=== PATIENT | female | born 1940 | race Caucasian/White ===

== ENCOUNTER 2018-02-07 18:29 | Observation (INO) ==
[2018-02-07] MEDS ORDERED: SALINE FLUSH 10ml SYRINGE IVF PRN (18:37)
[2018-02-07] MEDS ORDERED: LABETALOL 20mg/4ml INJECTION IVP ONE (18:37)
--- NOTE | 2018-02-07 18:41 | Emergency Department Report ---
Neuro HPI - General Stated Complaint: pos stoke Time Seen by Provider: 02/07/18 18:37 Source: patient Mode of arrival: ambulatory Limitations: no limitations - History of Present Illness HPI Narrative: Patient presents with a one-hour history of a feeling of lightheadedness and dizziness associated with left facial paresthesia. Patient is never had a heart attack or stroke to her knowledge, but was concerned so she came to the ER. In triage the patient was evaluated quickly, found to have a questionable left facial droop, as well as hypertension at 211/97, which is significantly elevated for this patient. - Related Data Home Medications: Home Medications Medication Instructions Recorded Confirmed Cyanocobalamin (B-12) [Vit. B-12] 1,000 mcg IM Q30D 02/07/18 02/07/18 Ibuprofen [Advil] 200 mg PO Q4H PRN 02/07/18 02/07/18 Multivitamin [One Daily 1 tab PO DAILY 02/07/18 02/07/18 Multivitamin] Allergies/Adverse Reactions: Allergies Allergy/AdvReac Type Severity Reaction Status Date / Time Sulfa (Sulfonamide Allergy Unknown Verified 02/07/18 19:01 Antibiotics) Review of Systems All systems: reviewed and negative except as stated PFSH Lichen planus Surgical History: Appendectomy. Colonoscopies - Social History Smoking status: Never smoker Substance use type: does not use Alcohol intake frequency: does not drink Physical Exam - Limitations Limitations: no limitations - General General appearance: alert - Normal Exams: Head:: Normocephalic without trauma Eyes:: Pupils are PERRLA w/ EOMI, No scleral icterus, irritation, or foreign bodies noted ENMT:: No facial trauma, nasal exudates, pharyngeal erythema, or exudates are noted Neck:: Full range of motion, without adenopathy, JVD, bruits or thyromegaly Chest/Respirations:: Clear all wakefield, with good airflow, and symmetry bilaterally Cardiovascular:: Regular rate and rhythm, without murmur or gallop, Pulses 2+ all extremities, capillary refill, <2 seconds all extremities Abdomen:: Bowel sounds positive, soft, non-tender, non-distended, no hepatosplenomegaly, masses or bruits noted Lymphatic:: No lymphadenopathy, or lymphedema noted Musculoskeletal:: No tenderness, or deformity noted, good range of motion, all extremities Integumentary:: No rashes, hives, or bruising noted, hair and nails, without abnormality Psychiatric:: Patient exhibits, appropriate attention, emotion and affect - Neurological Exam Neurological exam: Present: alert, oriented X3, CN II-XII intact (patient has a slight asymmetry of her face, left face leans slightly less active on exam than the right. Patient has no arcenio facial palsy, but does appear to have a slight left facial droop in comparison only. Patient has no idea if she's ever had anything like this before.), normal gait, motor sensory deficit, reflexes normal Neuro Symptoms/Deficit - [facility] Narrative Medical decision making narrative: Stroke alert was initiated immediately on triage CT head - normal/negative Patient is given 20 mg labetalol to reduce blood pressure CBC- n CMP - nn INR PTT - normal UA - n EKG - sinus rhythm without ischemic, ectopy, or infarction Troponin - n Patient's dizziness has completely resolved. Case is discussed with Dr. James Burgess, we will admit the patient outpatient for TIA versus CVA with minimal symptomatology. I did discuss with the patient and her family at the beginning as well as later in the course, the due to the patient's minimal symptomatology and improving course, that I did not recommend clotbusting medications. Patient family were accepting of this, and understood the precautions as well as the risks of severe bleeding if the patient was given TPA. - Lab Data Result diagrams: 02/07/18 18:46 02/07/18 19:08 Disposition Clinical Impression: Facial paresthesia, Dizziness Disposition: 01 Discharged Home, Self-Care Condition: Improved Prescriptions: No Action Multivitamin [One Daily Multivitamin] 1 tab PO DAILY Ibuprofen [Advil] 200 mg PO Q4H PRN PRN Reason: Pain Cyanocobalamin (B-12) [Vit. B-12] 1,000 mcg IM Q30D Referrals: Hannah Xavier DO [Primary Care Provider] - Desiree Farley MD [Physician] - - Seen By: physician
--- OUTSIDE RECORDS SUMMARY | 2018-02-07 18:59 | External Medical Summary | Referral Summary ---
:1940 Author Organization [facility] Address [address] [place] [address] [place] [address] Care Team Providers Name Role Phone Alvaro Xavierrakesh Yeh Primary Care Physician Encounter VC Date(s): 03/09/15 - 03/09/15 [facility] [place] [address]- Discharge Diagnosis: Hyperlipidemia Discharge Diagnosis: Rash Discharge Disposition: 01-Home or Self Care Attending Physician: Desiree Farley MD Admitting Physician: Desiree Farley MD Vital Signs Most recent to oldest [Reference Range]: 1 Temperature Tympanic [36.6-38.1 degC] 37.1 degC (03/09/15 2:33 PM) Blood Pressure [90-140/60-90 mmHg] 118/76 mmHg (03/09/15 2:33 PM) Problem List Condition Effective Dates Status Health Status Informant 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 Left Leg Fracture(Confirmed) 1987 Active Hearing Loss(Confirmed) Active very sensitive skin(Confirmed)1 Active Lichen Planus on fingers and legs, Active sees(Confirmed)2 Menopausal Symptoms(Confirmed) Active Obesity(Confirmed) Active patient neuromuscular rheumatism, 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) Sinusitis(Confirmed) Resolved Vitamin B complex Active deficiency(Confirmed) 1See Conversion Document.2Housholder Allergies, Adverse Reactions, Alerts Substance Reaction Severity Status sulfanilamide topical Rash Active Medications cyanocobalamin 1000 mcg/mL injectable solution 1,000 mcg, IntraMuscular, qMonth, # 12 mL, 0 Refill(s), other reason (Rx) Start Date: 12/01/14 Stop Date: 12/03/15 Status: Orderedmultivitamin Daily, 0 Refill(s) Start Date: 02/23/14 Status: Ordered Results No data available for this section Immunizations Vaccine Date Refusal Reason tetanus-diphth toxoids (Td) adult/adol 08/29/10 tetanus-diphth toxoids (Td) adult/adol 06/05/00 Procedures Procedure Date Related Diagnosis Body Site colonoscopy 2012 Colonoscopies1 2000 Appendectomy Tonsillectomy 79537 flex sig, diverticulosis Social History Social History Type Response Smoking Status Never smoker Assessment and Plan Extracted from: Title: Ambulatory Patient Education Author: Desiree Farley MD Date: 03/10/15 Family Medicine Cholesterol Cholesterol is a white, waxy, fat-like protein needed by your body in small amounts. The liver makes all the cholesterol you need. It is carried from the liver by the blood through the blood vessels. De posits (plaque ) may build up on blood vessel lyon. This makes the arteries narrower and stiffer. Plaque increases the risk for heart attack and stroke. You cannot feel your cholesterol level even if it is very high. The only way to know is by a blood test to check your lipid (fats) levels. Once you know your cholesterol levels, you should keep a record of the test results. Work with your caregiver to to keep your levels in the desired range. WHAT THE RESULTS MEAN: Total cholesterol is a rough measure of all the cholesterol in your blood. LDL is the so-called bad cholesterol. This is the type that deposits cholesterol in the lyon of the arteries. You want this level to be low. HDL is the good cholesterol because it cleans the arteries and carries the LDL away. You want this level to be high. Triglycerides are fat that the body can either burn for energy or store. High levels are closely linked to heart disease. DESIRED LEVELS: Total cholesterol below 200. LDL below 100 for people at risk, below 70 for very high risk. HDL above 50 is good, above 60 is best. Triglycerides below 150. HOW TO LOWER YOUR CHOLESTEROL: Diet. Choose fish or white meat chicken and turkey, roasted or baked. Limit fatty cuts of red meat, fried foods, and processed meats, such as sausage and lunch meat. Eat lots of fresh fruits and vegetables. Choose whole grains, beans, pasta, potatoes and cereals. Use only small amounts of olive, corn or canola oils. Avoid butter, mayonnaise, shortening or palm kernel oils. Avoid foods with trans-fats. Use skim/nonfat milk and low-fat/nonfat yogurt and cheeses. Avoid whole milk, cream, ice cream, egg yolks and cheeses. Healthy desserts include sade food cake, sammie snaps, animal crackers, hard candy, popsicles, and low-fat/nonfat frozen yogurt. Avoid pastries, cakes, pies and cookies. Exercise. A regular program helps decrease LDL and raises HDL. Helps with weight control. Do things that increase your activity level like gardening, walking, or taking the stairs. Medication. May be prescribed by your caregiver to help lowering cholesterol and the risk for heart disease. You may need medicine even if your levels are normal if you have several risk factors. HOME CARE INSTRUCTIONS Follow your diet and exercise programs as suggested by your caregiver. Take medications as directed. Have blood work done when your caregiver feels it is necessary. MAKE SURE YOU: Understand these instructions. Will watch your condition. Will get help right away if you are not doing well or get worse. Document Released: 05/22/2002 Document Revised: 11/18/2012 Document Reviewed: 06/10/2014 [facility] Patient Information 2014 [employer] [facility]. No follow up information was provided. Extracted from: Title: Office Visit Note Author: Desiree Farley MD Date: 03/10/15 Assessment/Plan Hyperlipidemia Patient does not wish meds Rash This is from abdomen rubbing on upper thigh.
--- OUTSIDE RECORDS SUMMARY | 2018-02-07 18:59 | External Medical Summary | Referral Summary ---
:1940 Author Organization [facility] Address [address] [place] [address] [place] [address] Care Team Providers Name Role Phone Hannah Xavier Primary Care Physician Encounter VC Date(s): 12/12/16 - 12/12/16 [facility] [address] [place] [address] [place] Discharge Disposition: 01-Home or Self Care Attending Physician: Hannah Xavier DO Admitting Physician: Hannah Xavier DO Vital Signs No data available for this section Problem List Condition Effective Dates Status Health [...] 0 Refill(s), other reason (Rx) Start Date: 09/19/16 Status: Orderedmultivitamin Daily, 0 Refill(s) Start Date: 02/23/14 Status: Ordered Results No data available for this section Immunizations Given and Recorded Vaccine Date Status Refusal Reason tetanus-diphth toxoids (Td) adult/adol 08/29/10 Recorded tetanus-diphth toxoids (Td) adult/adol 06/05/00 Recorded Procedures Procedure Date Related Diagnosis Body Site colonoscopy 2012 Colonoscopies1 2000 Appendectomy Tonsillectomy 45083 flex sig, diverticulosis Social History Social History Type Response Smoking Status Never smoker Assessment and Plan No data available for this section
--- OUTSIDE RECORDS SUMMARY | 2018-02-07 18:59 | External Medical Summary | Referral Summary ---
:1940 Author Organization [facility] Address [address] [place] [address] [place] [address] Care Team Providers Name Role Phone Hannah Xavier Primary Care Physician Encounter VC Date(s): 07/25/16 - 07/25/16 [facility] [place] [address] [place] Discharge Disposition: [...] Site colonoscopy 2012 Colonoscopies1 2000 Appendectomy Tonsillectomy 63118 flex sig, diverticulosis Social History Social History Type Response Smoking Status Never smoker Assessment and Plan No data available for this section
--- OUTSIDE RECORDS SUMMARY | 2018-02-07 18:59 | External Medical Summary | Referral Summary ---
:1940 Author Organization [facility], [facility] Address [address] [place] [address] [place] [address] Care Team Providers Name Role Phone Hannah Xavier Primary Care Physician Encounter VC Date(s): 05/29/17 - 05/29/17 [facility], [address] [place] [address] [place] Discharge Disposition: 01-Home or Self Care Attending Physician: Hannah Xavier DO Admitting Physician: Hannah Xavier DO Problem List Condition Effective Dates Status Health [...] 0 Refill(s) Start Date: 02/23/14 Status: Ordered Immunizations Given and Recorded Vaccine Date Status Refusal Reason tetanus-diphth toxoids (Td) adult/adol 08/29/10 Recorded tetanus-diphth toxoids (Td) adult/adol 06/05/00 Recorded Procedures Procedure Date Related Diagnosis Body Site colonoscopy 05/06/12 Colonoscopies1 2000 Appendectomy Tonsillectomy 44192 flex sig, diverticulosis Social History Social History Type Response Smoking Status Never smoker entered on: 11/26/14
--- OUTSIDE RECORDS SUMMARY | 2018-02-07 18:59 | External Medical Summary | Referral Summary ---
:1940 Author Organization [facility] Address [address] [place] [address] [place] [address] Care Team Providers Name Role Phone Hannah Xavier Primary Care Physician Encounter VC Date(s): 11/09/15 - 11/09/15 [facility] [address] [place] [address] [place] [address] [place] Discharge Disposition: 01-Home [...] Site colonoscopy 2012 Colonoscopies1 2000 Appendectomy Tonsillectomy 78729 flex sig, diverticulosis Social History Social History Type Response Smoking Status Never smoker Assessment and Plan No data available for this section
--- OUTSIDE RECORDS SUMMARY | 2018-02-07 18:59 | External Medical Summary | Referral Summary ---
:1940 Author Organization [facility] Address [address] [place] [address] [place] [address] Care Team Providers Name Role Phone Hannah Xavier Primary Care Physician Encounter VC Date(s): 03/06/17 - 03/06/17 [facility] [address] [place] [address] [place] Discharge Disposition: [...] Site colonoscopy 2012 Colonoscopies1 2000 Appendectomy Tonsillectomy 37123 flex sig, diverticulosis Social History Social History Type Response Smoking Status Never smoker Assessment and Plan No data available for this section
--- OUTSIDE RECORDS SUMMARY | 2018-02-07 18:59 | External Medical Summary | Referral Summary ---
:1940 Author Organization [facility] Address [address] [place] [address] [place] [address] Care Team Providers Name Role Phone Hannah Xavier Primary Care Physician Encounter VC Date(s): 08/10/15 - 08/10/15 [facility], [facility] [address] [place] [address] [place] [address]- Discharge Disposition: 01-Home or Self Care Attending [...] Site colonoscopy 2012 Colonoscopies1 2000 Appendectomy Tonsillectomy 41787 flex sig, diverticulosis Social History Social History Type Response Smoking Status Never smoker Assessment and Plan No data available for this section
--- OUTSIDE RECORDS SUMMARY | 2018-02-07 18:59 | External Medical Summary | Referral Summary ---
:1940 Author Care Team Providers Name Role Phone Desiree Farley Primary Care Physician Encounter [facility] [id number] Date(s): 12/29/14 - 12/29/14 [facility], [facility], [address] [place], [place] [address] Discharge Diagnosis: Vitamin B 12 deficiency Discharge Disposition: Home or Self Care Attending Physician: Desiree Farley MD Admitting Physician: Desiree Farley MD Referring Physician: Desiree Farley MD Vital Signs No data available for this [...] Refill(s), other reason (Rx) Start Date: 12/01/14 Status: Orderedmultivitamin Daily, 0 Refill(s) Start Date: 02/23/14 Status: Ordered Results No data available for this section Immunizations Vaccine Date Refusal Reason tetanus-diphth toxoids (Td) adult/adol 08/29/10 tetanus-diphth toxoids (Td) adult/adol 06/05/00 Procedures Procedure Date Related Diagnosis Body Site colonoscopy 2012 Colonoscopies1 2000 Appendectomy Tonsillectomy 24470 flex sig, diverticulosis Social History Social History Type Response Smoking Status Never smoker Assessment and Plan No data available for this section
--- OUTSIDE RECORDS SUMMARY | 2018-02-07 18:59 | External Medical Summary | Referral Summary ---
:1940 Author Organization [facility] Address [address] [place] [address] [place] [address] Care Team Providers Name Role Phone Hannah Xavier Primary Care Physician Encounter VC Date(s): 06/27/16 - 06/27/16 [facility] [place] [address] Discharge Diagnosis: Deficiency of vitamin B12 Discharge Disposition: 01-Home or Self Care Attending [...] Site colonoscopy 2012 Colonoscopies1 2000 Appendectomy Tonsillectomy 13468 flex sig, diverticulosis Social History Social History Type Response Smoking Status Never smoker Assessment and Plan No data available for this section
--- OUTSIDE RECORDS SUMMARY | 2018-02-07 18:59 | External Medical Summary | Referral Summary ---
:1940 Author Organization [facility] Address [address] [place] [address] [place] [address] Care Team Providers Name Role Phone Hannah Xavier Primary Care Physician Encounter VC Date(s): 07/13/15 - 07/13/15 [facility], [facility] [address] [place] [address] [place] [address]- Discharge Disposition: 01-Home or Self Care Attending [...] Site colonoscopy 2012 Colonoscopies1 2000 Appendectomy Tonsillectomy 47028 flex sig, diverticulosis Social History Social History Type Response Smoking Status Never smoker Assessment and Plan No data available for this section
--- OUTSIDE RECORDS SUMMARY | 2018-02-07 18:59 | External Medical Summary | Referral Summary ---
:1940 Author Organization [facility] Address [address] [place] [address] [place] [address] Care Team Providers Name Role Phone Hannah Xavier Rao Primary Care Physician Encounter VC Date(s): 03/23/15 - 03/23/15 [facility] [place] [address]- Discharge Diagnosis: Vitamin B-12 defiency Discharge Disposition: 01-Home or Self Care Attending Physician: Desiree Farley MD Admitting Physician: Desiree Farley MD Vital Signs No [...] Site colonoscopy 2012 Colonoscopies1 2000 Appendectomy Tonsillectomy 22114 flex sig, diverticulosis Social History Social History Type Response Smoking Status Never smoker Assessment and Plan No data available for this section
--- OUTSIDE RECORDS SUMMARY | 2018-02-07 18:59 | External Medical Summary | Referral Summary ---
:1940 Author Organization [facility] Address [address] [place] [address] [place] [address] Care Team Providers Name Role Phone Hannah Xavier Primary Care Physician Encounter VC Date(s): 09/14/15 - 09/14/15 [facility] [address] [place] [address] [place] [address] Discharge Disposition: 01-Home or Self Care Attending [...] Site colonoscopy 2012 Colonoscopies1 2000 Appendectomy Tonsillectomy 09324 flex sig, diverticulosis Social History Social History Type Response Smoking Status Never smoker Assessment and Plan No data available for this section
--- OUTSIDE RECORDS SUMMARY | 2018-02-07 18:59 | External Medical Summary | Referral Summary ---
:1940 Author Organization [facility] Address [address] [place] [address] [place] [address] Care Team Providers Name Role Phone Hannah Xavier Primary Care Physician Encounter VC Date(s): 02/06/17 - 02/06/17 [facility] [address] [place] [address] [place] Discharge Disposition: [...] Site colonoscopy 2012 Colonoscopies1 2000 Appendectomy Tonsillectomy 38553 flex sig, diverticulosis Social History Social History Type Response Smoking Status Never smoker Assessment and Plan No data available for this section
--- OUTSIDE RECORDS SUMMARY | 2018-02-07 18:59 | External Medical Summary | Referral Summary ---
:1940 Author Organization [facility] Address [address] [place] [address] [place] [address] Care Team Providers Name Role Phone Hananh Xavier Primary Care Physician Encounter VC Date(s): 10/08/15 - 10/08/15 [facility] [place] [address] [place] Discharge Diagnosis: B 12 def. Discharge Disposition: 01-Home or Self Care Attending Physician: Hannah Xavier DO Admitting Physician: Hannah Xavier DO Vital Signs Most recent to oldest [Reference Range]: 1 Peripheral Pulse Rate [60-100 bpm] 69 bpm (10/08/15 10:00 AM) Respiratory Rate [14-20 br/min] 18 br/min (10/08/15 10:00 AM) Blood Pressure [90-140/60-90 mmHg] 112/78 mmHg (10/08/15 10:00 AM) SpO2 95 % (10/08/15 10:00 AM) Problem List Condition Effective Dates Status Health [...] Refill(s) Start Date: 02/23/14 Status: Ordered Results Hematology Most recent to oldest [Reference Range]: 1 WBC [4.8-10.8 10*3/uL] 4.5 10*3/uL *LOW* (10/08/15 10:38 AM) RBC [4.00-5.20] 4.74 (10/08/15 10:38 AM) Hgb [12.0-16.0 gm/dL] 14.5 gm/dL (10/08/15 10:38 AM) Hct [37.0-47.0 %] 42.9 % (10/08/15 10:38 AM) MCV [82.0-99.0 fL] 90.5 fL (10/08/15 10:38 AM) MCH [27.0-32.0 pg] 30.6 pg (10/08/15 10:38 AM) MCHC [32.0-36.0 gm/dL] 33.8 gm/dL (10/08/15 10:38 AM) RDW [11.5-14.5 %] 13.9 % (10/08/15 10:38 AM) Platelet [150-400 10*3/uL] 225 10*3/uL (10/08/15 10:38 AM) MPV [8.8-14.8 fL] 11.3 fL (10/08/15 10:38 AM) Immature Granulocytes [0.0-1.0 %] 0.0 % (10/08/15 10:38 AM) Neutrophils [51-75 %] 54 % (10/08/15 10:38 AM) Lymphocytes [20-46 %] 35 % (10/08/15 10:38 AM) Monocytes [4-11 %] 7 % (10/08/15 10:38 AM) Eosinophils [0-4 %] 4 % (10/08/15 10:38 AM) Basophils [0-2 %] 1 % (10/08/15 10:38 AM) Neutro Absolute [1.90-7.00 10*3] 2.42 10*3 (10/08/15 10:38 AM) Lymph Absolute [0.80-3.30 10*3] 1.56 10*3 (10/08/15 10:38 AM) Latimer Absolute [0.30-1.00 10*3] 0.32 10*3 (10/08/15 10:38 AM) Eos Absolute [0.00-0.50 10*3] 0.17 10*3 (10/08/15 10:38 AM) Baso Absolute [0.00-0.20 10*3] 0.04 10*3 (10/08/15 10:38 AM) Chemistry Most recent to oldest [Reference Range]: 1 Sodium Lvl [135-144 mEq/L] 139 mEq/L (10/08/15 10:38 AM) Potassium Lvl [3.5-5.2 mEq/L] 4.4 mEq/L (10/08/15 10:38 AM) Chloride [99-111 mEq/L] 105 mEq/L (10/08/15 10:38 AM) CO2 [22-31 mEq/L] 25 mEq/L (10/08/15 10:38 AM) AGAP [3-20] 9 (10/08/15 10:38 AM) BUN [10-20 mg/dL] 22 mg/dL *HI* (10/08/15 10:38 AM) Glucose Lvl [70-99 mg/dL] 103 mg/dL *HI* (10/08/15 10:38 AM) Creatinine Lvl [0.57-1.11 mg/dL] 0.77 mg/dL (10/08/15 10:38 AM) eGFR [>60 mL/min] >60 mL/min 1 (10/08/15 10:38 AM) Calcium Lvl [8.9-10.5 mg/dL] 9.8 mg/dL (10/08/15 10:38 AM) Albumin Lvl [3.4-4.8 gm/dL] 4.4 gm/dL (10/08/15 10:38 AM) Total Protein [6.2-8.1 gm/dL] 7.3 gm/dL (10/08/15 10:38 AM) Globulin [1.8-4.0 gm/dL] 2.9 gm/dL (10/08/15 10:38 AM) ALT [0-55 U/L] 26 U/L (10/08/15 10:38 AM) AST [5-34 U/L] 21 U/L (10/08/15 10:38 AM) Alk Phos [40-150 U/L] 97 U/L (10/08/15 10:38 AM) Bili Total [0.2-1.2 mg/dL] 0.5 mg/dL (10/08/15 10:38 AM) Chol [0-199 mg/dL] 264 mg/dL *HI* (10/08/15 10:38 AM) Trig [0-149 mg/dL] 142 mg/dL (10/08/15 10:38 AM) HDL [40-84 mg/dL] 56 mg/dL (10/08/15 10:38 AM) LDL [0-130 mg/dL] 180 mg/dL *HI* (10/08/15 10:38 AM) VLDL Cholesterol [0-28 mg/dL] 28 mg/dL (10/08/15 10:38 AM) Cardiac Risk [0.0-5.0] 4.7 (10/08/15 10:38 AM) 1Result Comment: Multiply eGFR results by 1.21 for race. Immunizations Vaccine Date Refusal Reason tetanus-diphth toxoids (Td) adult/adol 08/29/10 tetanus-diphth toxoids (Td) adult/adol 06/05/00 Procedures Procedure Date Related Diagnosis Body Site colonoscopy 2012 Colonoscopies1 2000 Appendectomy Tonsillectomy 25506 flex sig, diverticulosis Social History Social History Type Response Smoking Status Never smoker Assessment and Plan Extracted from: Title: Office Visit Note Author: Hannah Xavier DO Date: 10/08/15 Assessment/Plan B 12 def. [id number] shots. Ordered: Office Visit Level 4 Est 95592 Hyperlipidemia We will get an FLP today with further recommendations after results. Ordered: Comprehensive Metabolic Panel Lipid Panel Office Visit Level 4 Est 61377 Leukocytosis This was mild and noted on her last lab work, we'll get follow -up CBC. Ordered: CBC w/ Differential Office Visit Level 4 Est 59272
--- OUTSIDE RECORDS SUMMARY | 2018-02-07 18:59 | External Medical Summary | Referral Summary ---
:1940 Author Organization [facility] Address [address] [place] [address] [place]te[place] [address] Care Team Providers Name Role Phone Hannah Xavier Primary Care Physician Encounter VC Date(s): 05/18/15 - 05/18/15 [facility] [place] [address]- Discharge Diagnosis: OTHER B-COMPLEX DEFICIENCIES Discharge Disposition: 01-Home or Self Care Attending [...] Site colonoscopy 2012 Colonoscopies1 2000 Appendectomy Tonsillectomy 59726 flex sig, diverticulosis Social History Social History Type Response Smoking Status Never smoker Assessment and Plan No data available for this section
--- OUTSIDE RECORDS SUMMARY | 2018-02-07 19:00 | External Medical Summary | Referral Summary ---
:1940 Author Organization [facility] Address [address] [place] [address] [place] [address] Care Team Providers Name Role Phone Hannah Xavier Primary Care Physician Encounter VC Date(s): 10/17/16 - 10/17/16 [facility] [address] [place] [address] [place] Discharge Disposition: [...] Site colonoscopy 2012 Colonoscopies1 2000 Appendectomy Tonsillectomy 24369 flex sig, diverticulosis Social History Social History Type Response Smoking Status Never smoker Assessment and Plan No data available for this section
--- OUTSIDE RECORDS SUMMARY | 2018-02-07 19:00 | External Medical Summary | Referral Summary ---
:1940 Author Organization [facility] Address [address] [place] [address] [place] [address] Care Team Providers Name Role Phone Hannah Xavier Primary Care Physician Encounter VC Date(s): 12/14/15 - 12/14/15 [facility] [address] [place] [address] [place] [address]- Discharge Disposition: 01-Home or Self Care Attending [...] Site colonoscopy 2012 Colonoscopies1 2000 Appendectomy Tonsillectomy 63705 flex sig, diverticulosis Social History Social History Type Response Smoking Status Never smoker Assessment and Plan No data available for this section
--- OUTSIDE RECORDS SUMMARY | 2018-02-07 19:00 | External Medical Summary | Referral Summary ---
:1940 Author Organization [facility] Address [address] [place] [address] [place] [address] Care Team Providers Name Role Phone Duc Hannah N Primary Care Physician Encounter VC Date(s): 02/23/15 - 02/23/15 [facility] [place] [address] [place] Discharge Disposition: 01-Home or Self Care Attending Physician: Lucila Whittaker APRN Admitting Physician: Lucila Whittaker APRN Vital Signs No data available for this [...] Site colonoscopy 2012 Colonoscopies1 2000 Appendectomy Tonsillectomy 40828 flex sig, diverticulosis Social History Social History Type Response Smoking Status Never smoker Assessment and Plan No data available for this section
--- OUTSIDE RECORDS SUMMARY | 2018-02-07 19:00 | External Medical Summary | Referral Summary ---
:1940 Author Organization [facility] Address [address] [place] [address] [place] [address] Care Team Providers Name Role Phone Hannah Xavier Primary Care Physician Encounter VC Date(s): 05/30/16 - 05/30/16 [facility] [address] [place] [address] Discharge Diagnosis: Deficiency of vitamin B12 Discharge [...] Site colonoscopy 2012 Colonoscopies1 2000 Appendectomy Tonsillectomy 64116 flex sig, diverticulosis Social History Social History Type Response Smoking Status Never smoker Assessment and Plan No data available for this section
--- OUTSIDE RECORDS SUMMARY | 2018-02-07 19:00 | External Medical Summary | Referral Summary ---
:1940 Author Organization [facility] Address [address] [place] [address] [place] [address] Care Team Providers Name Role Phone Hannah Xavier Primary Care Physician Encounter VC Date(s): 02/08/16 - 02/08/16 [facility] [address] [place] [address] [place] [address]- Discharge Disposition: 01-Home or Self Care Attending Physician: Hannah Xavier DO Admitting Physician: Hannah Xavier DO Referring Physician: Hannah Xavier DO Vital Signs No [...] Site colonoscopy 2012 Colonoscopies1 2000 Appendectomy Tonsillectomy 13775 flex sig, diverticulosis Social History Social History Type Response Smoking Status Never smoker Assessment and Plan No data available for this section
--- OUTSIDE RECORDS SUMMARY | 2018-02-07 19:00 | External Medical Summary | Referral Summary ---
:1940 Author Organization [facility] Address [address] [place] [address] [place] [address] Care Team Providers Name Role Phone Hannah Xavier Rao Primary Care Physician Encounter VC Date(s): 01/26/15 - 01/26/15 [facility] [address] [place] [address] [place] Discharge Diagnosis: Vitamin B-12 defiency Discharge Disposition: 01-Home or Self Care Attending Physician: Desiree Farley MD Admitting Physician: Desiree Farley MD Referring Physician: Deisree Farley MD Vital Signs No data available [...] (Td) adult/adol 08/29/10 tetanus-diphth toxoids (Td) adult/adol 9/26/00 Procedures Procedure Date Related Diagnosis Body Site colonoscopy 2012 Colonoscopies1 2000 Appendectomy Tonsillectomy 46923 flex sig, diverticulosis Social History Social History Type Response Smoking Status Never smoker Assessment and Plan No data available for this section
--- OUTSIDE RECORDS SUMMARY | 2018-02-07 19:00 | External Medical Summary | Referral Summary ---
:1940 Author Organization [facility] Address [address] [place] [address] [place] [address] Care Team Providers Name Role Phone Hannah Xavier Primary Care Physician Encounter VC Date(s): 04/03/17 - 04/03/17 [facility] [address] [place] [address] [place] Discharge Disposition: [...] Site colonoscopy 05/06/12 Colonoscopies1 2000 Appendectomy Tonsillectomy 70693 flex sig, diverticulosis Social History Social History Type Response Smoking Status Never smoker Assessment and Plan No data available for this section
--- OUTSIDE RECORDS SUMMARY | 2018-02-07 19:00 | External Medical Summary | Referral Summary ---
:1940 Author Organization [facility] Address [address] [place] [address] [place] [address] Care Team Providers Name Role Phone Hannah Xavier Rao Primary Care Physician Encounter VC Date(s): 04/20/15 - 04/20/15 [facility] [address] [place] [address] [place] [address] Discharge Diagnosis: Vitamin B-12 defiency Discharge Disposition: [...] Site colonoscopy 2012 Colonoscopies1 2000 Appendectomy Tonsillectomy 89603 flex sig, diverticulosis Social History Social History Type Response Smoking Status Never smoker Assessment and Plan No data available for this section
--- OUTSIDE RECORDS SUMMARY | 2018-02-07 19:00 | External Medical Summary | Referral Summary ---
:1940 Author Organization [facility] Address [address] [place] [address] [place] [address] Care Team Providers Name Role Phone Hannah Xavier Primary Care Physician Encounter VC Date(s): 03/07/16 - 03/07/16 [facility] [address] [place] [address] [place] [address]- Discharge Disposition: 01-Home or Self Care Attending [...] Site colonoscopy 2012 Colonoscopies1 2000 Appendectomy Tonsillectomy 38517 flex sig, diverticulosis Social History Social History Type Response Smoking Status Never smoker Assessment and Plan No data available for this section
--- OUTSIDE RECORDS SUMMARY | 2018-02-07 19:00 | External Medical Summary | Referral Summary ---
:1940 Author Organization [facility] Address [address] [place] [address] [place] [address] Care Team Providers Name Role Phone Hannah Xavier Primary Care Physician Encounter VC Date(s): 01/09/17 - 01/09/17 [facility] [address] [place] [address] [place] Discharge Disposition: [...] Site colonoscopy 2012 Colonoscopies1 2000 Appendectomy Tonsillectomy 70860 flex sig, diverticulosis Social History Social History Type Response Smoking Status Never smoker Assessment and Plan No data available for this section
--- OUTSIDE RECORDS SUMMARY | 2018-02-07 19:00 | External Medical Summary | Referral Summary ---
:1940 Author Organization [facility] Address [address] [place] [address] [place] [address] Care Team Providers Name Role Phone Hannah Xavier Primary Care Physician Encounter VC Date(s): 06/27/17 - 06/27/17 [facility], [address] [place] [address] [place] Discharge Disposition: [...] Site colonoscopy 05/06/12 Colonoscopies1 2000 Appendectomy Tonsillectomy 61855 flex sig, diverticulosis Social History Social History Type Response Smoking Status Never smoker entered on: 11/26/14
--- OUTSIDE RECORDS SUMMARY | 2018-02-07 19:00 | External Medical Summary | Referral Summary ---
:1940 Author Organization [facility] Address [address] [place] [address] [place] [address] Care Team Providers Name Role Phone Hannah Xavier Primary Care Physician Encounter VC Date(s): 06/15/15 - 06/15/15 [facility] [address] [place] [address] [place] [address] [place] Discharge Disposition: 01-Home [...] Site colonoscopy 2012 Colonoscopies1 2000 Appendectomy Tonsillectomy 60829 flex sig, diverticulosis Social History Social History Type Response Smoking Status Never smoker Assessment and Plan No data available for this section
--- OUTSIDE RECORDS SUMMARY | 2018-02-07 19:00 | External Medical Summary | Referral Summary ---
:1940 Author Organization [facility] Address [address] [place] [address] [place] [address] Care Team Providers Name Role Phone Hannah Xavier Rao Primary Care Physician Encounter VC Date(s): 01/26/15 - 01/26/15 [facility] [address] [place] [address] [place] Discharge Diagnosis: [...] Site colonoscopy 2012 Colonoscopies1 2000 Appendectomy Tonsillectomy 73811 flex sig, diverticulosis Social History Social History Type Response Smoking Status Never smoker Assessment and Plan No data available for this section
--- OUTSIDE RECORDS SUMMARY | 2018-02-07 19:00 | External Medical Summary | Referral Summary ---
:1940 Author Organization [facility] Address [address] [place] [address] [place] [address] Care Team Providers Name Role Phone Alvaro Xavierrakesh Yeh Primary Care Physician Encounter VC Date(s): 03/09/15 - 03/09/15 [facility] [place] [address]- Discharge Diagnosis: Hyperlipidemia Discharge Diagnosis: Rash Discharge [...] Site colonoscopy 2012 Colonoscopies1 2000 Appendectomy Tonsillectomy 02190 flex sig, diverticulosis Social History Social History [...] 05/22/2002 Document Revised: 11/18/2012 Document Reviewed: 06/10/2014 [facility] Patient Information 2014 [email or web address] [facility]. No follow up information was provided. Extracted from: Title: Office Visit Note Author: Desiree Farley MD Date: 03/10/15 Assessment/Plan Hyperlipidemia Patient does not wish meds Rash This is from abdomen rubbing on upper thigh.
--- OUTSIDE RECORDS SUMMARY | 2018-02-07 19:00 | External Medical Summary | Referral Summary ---
:1940 Author Organization [facility] Address [address] [place] [address] [place] [address] Care Team Providers Name Role Phone Hannah Xavier Primary Care Physician Encounter VC Date(s): 06/15/15 - 06/15/15 [facility] [address] [place] [address] [place] [address] [place] Discharge Disposition: 01-Home [...] Site colonoscopy 2012 Colonoscopies1 2000 Appendectomy Tonsillectomy 25013 flex sig, diverticulosis Social History Social History Type Response Smoking Status Never smoker Assessment and Plan No data available for this section
--- OUTSIDE RECORDS SUMMARY | 2018-02-07 19:00 | External Medical Summary | Referral Summary ---
:1940 Author Organization [facility] Address [address] [place] [address] [place] [address] Care Team Providers Name Role Phone Hannah Xavier Primary Care Physician Encounter VC Date(s): 09/19/16 - 09/19/16 [facility] [address] [place] [address] [place] Discharge Disposition: [...] Site colonoscopy 2012 Colonoscopies1 2000 Appendectomy Tonsillectomy 04633 flex sig, diverticulosis Social History Social History Type Response Smoking Status Never smoker Assessment and Plan No data available for this section
--- OUTSIDE RECORDS SUMMARY | 2018-02-07 19:00 | External Medical Summary | Referral Summary ---
:1940 Author Organization [facility] Address [address] [place] [address] [place] [address] Care Team Providers Name Role Phone Hannah Xavier Primary Care Physician Encounter VC Date(s): 05/02/16 - 05/02/16 [facility] [place] [address]- Discharge Diagnosis: Deficiency of vitamin B12 Discharge [...] Site colonoscopy 2012 Colonoscopies1 2000 Appendectomy Tonsillectomy 46433 flex sig, diverticulosis Social History Social History Type Response Smoking Status Never smoker Assessment and Plan No data available for this section
--- OUTSIDE RECORDS SUMMARY | 2018-02-07 19:00 | External Medical Summary | Referral Summary ---
:1940 Author Organization [facility] Address [address] [place] [address] [place] [address] Care Team Providers Name Role Phone Hannah Xavier Primary Care Physician Encounter VC Date(s): 03/20/17 - 03/20/17 [facility] [address] [place] [address] [place] Discharge Disposition: 01-Home or Self Care Attending Physician: Hannah Xavier DO Admitting Physician: Hannah Xavier DO Vital Signs Most recent to oldest [Reference Range]: 1 Peripheral Pulse Rate [60-100 bpm] 68 bpm (03/20/17 7:53 AM) Blood Pressure [90-140/60-90 mmHg] 144/90 mmHg *HI* (03/20/17 7:53 AM) SpO2 96 % (03/20/17 7:53 AM) Problem List Condition Effective Dates Status [...] oldest [Reference Range]: 1 WBC [4.8-10.8 10*3/uL] 4.2 10*3/uL *LOW* (03/20/17 8:24 AM) RBC [4.00-5.20] 4.74 (03/20/17 8:24 AM) Hgb [12.0-16.0 gm/dL] 14.4 gm/dL (03/20/17 8:24 AM) Hct [37.0-47.0 %] 44.0 % (03/20/17 8:24 AM) MCV [82.0-99.0 fL] 92.8 fL (03/20/17 8:24 AM) MCH [27.0-32.0 pg] 30.4 pg (03/20/17 8:24 AM) MCHC [32.0-36.0 gm/dL] 32.7 gm/dL (03/20/17 8:24 AM) RDW [11.5-14.5 %] 14.0 % (03/20/17 8:24 AM) Platelet [150-400 10*3/uL] 221 10*3/uL (03/20/17 8:24 AM) MPV [8.8-14.8 fL] 11.1 fL (03/20/17 8:24 AM) Immature Granulocytes [0.0-1.0 %] 0.0 % (03/20/17 8:24 AM) Neutrophils [51-75 %] 42 % *LOW* (03/20/17 8:24 AM) Lymphocytes [20-46 %] 43 % (03/20/17 8:24 AM) Monocytes [4-11 %] 9 % (03/20/17 8:24 AM) Eosinophils [0-4 %] 6 % *HI* (03/20/17 8:24 AM) Basophils [0-2 %] 1 % (03/20/17 8:24 AM) Neutro Absolute [1.90-7.00] 1.72 *LOW* (03/20/17 8:24 AM) Lymph Absolute [0.80-3.30] 1.80 (03/20/17 8:24 AM) Citrus Absolute [0.30-1.00] 0.37 (03/20/17 8:24 AM) Eos Absolute [0.00-0.50] 0.23 (03/20/17 8:24 AM) Baso Absolute [0.00-0.20] 0.03 (03/20/17 8:24 AM) Chemistry Most recent to oldest [Reference Range]: 1 Sodium Lvl [135-144 mEq/L] 140 mEq/L (03/20/17 8:24 AM) Potassium Lvl [3.5-5.2 mEq/L] 4.4 mEq/L (03/20/17 8:24 AM) Chloride [99-111 mEq/L] 104 mEq/L (03/20/17 8:24 AM) CO2 [22-31 mEq/L] 26 mEq/L (03/20/17 8:24 AM) AGAP [3-20 mEq/L] 10 mEq/L (03/20/17 8:24 AM) BUN [10-20 mg/dL] 14 mg/dL (03/20/17 8:24 AM) Glucose Lvl [70-99 mg/dL] 98 mg/dL (03/20/17 8:24 AM) Creatinine Lvl [0.57-1.11 mg/dL] 0.84 mg/dL (03/20/17 8:24 AM) eGFR [>60 mL/min] >60 mL/min 1 (03/20/17 8:24 AM) Calcium Lvl [8.4-10.2 mg/dL] 9.9 mg/dL (03/20/17 8:24 AM) Albumin Lvl [3.4-4.8 gm/dL] 4.4 gm/dL (03/20/17 8:24 AM) Total Protein [6.0-7.6 gm/dL] 7.2 gm/dL (03/20/17 8:24 AM) Globulin [1.8-4.0 gm/dL] 2.8 gm/dL (03/20/17 8:24 AM) ALT [0-55 U/L] 17 U/L (03/20/17 8:24 AM) AST [5-34 U/L] 17 U/L (03/20/17 8:24 AM) Alk Phos [40-150 U/L] 91 U/L (03/20/17 8:24 AM) Bili Total [0.2-1.2 mg/dL] 0.6 mg/dL (03/20/17 8:24 AM) Vitamin B12 Lvl [213-816 pg/mL] 956 pg/mL *HI* (03/20/17 8:24 AM) Chol [0-199 mg/dL] 252 mg/dL *HI* (03/20/17 8:24 AM) Trig [0-149 mg/dL] 134 mg/dL (03/20/17 8:24 AM) HDL [40-84 mg/dL] 49 mg/dL (03/20/17 8:24 AM) LDL [0-130 mg/dL] 176 mg/dL *HI* (03/20/17 8:24 AM) VLDL Cholesterol [0-28 mg/dL] 27 mg/dL (03/20/17 8:24 AM) Cardiac Risk [0.0-5.0] 5.1 *HI* (03/20/17 8:24 AM) 1Result Comment: Multiply eGFR results by 1.21 for race. Immunizations Given and Recorded Vaccine Date Status Refusal Reason tetanus-diphth toxoids (Td) adult/adol 08/29/10 Recorded tetanus-diphth toxoids (Td) adult/adol 06/05/00 Recorded Procedures Procedure Date Related Diagnosis Body Site colonoscopy 05/06/12 Colonoscopies1 2000 Appendectomy Tonsillectomy 20690 flex sig, diverticulosis Social History Social History Type Response Smoking Status Never smoker Assessment and Plan No data available for this section
--- OUTSIDE RECORDS SUMMARY | 2018-02-07 19:00 | External Medical Summary | Referral Summary ---
:1940 Author Organization [facility] Address [address] [place] [address] [place]te[place] [address] Care Team Providers Name Role Phone Hannah Xavier Primary Care Physician Encounter VC Date(s): 10/12/15 - 10/12/15 [facility] [address] [place] [address] [place] [address] [place] Discharge Disposition: 01-Home or Self Care Attending Physician: Hannah Xavier DO Vital Signs No [...] Site colonoscopy 2012 Colonoscopies1 2000 Appendectomy Tonsillectomy 27157 flex sig, diverticulosis Social History Social History Type Response Smoking Status Never smoker Assessment and Plan No data available for this section
--- OUTSIDE RECORDS SUMMARY | 2018-02-07 19:00 | External Medical Summary | Referral Summary ---
:1940 Author Organization [facility] Address [address] [place] [address] [place] Orte[place] [address] Care Team Providers Name Role Phone Hannah Xavier Primary Care Physician Encounter VC Date(s): 01/11/16 - 01/11/16 [facility] [address] [place] [address] [place] [address] [place] Discharge Disposition: 01-Home [...] Site colonoscopy 2012 Colonoscopies1 2000 Appendectomy Tonsillectomy 41365 flex sig, diverticulosis Social History Social History Type Response Smoking Status Never smoker Assessment and Plan No data available for this section
--- OUTSIDE RECORDS SUMMARY | 2018-02-07 19:00 | External Medical Summary | Referral Summary ---
:1940 Author Organization [facility] Address [address] [place] [address] [place]te[place] [address] Care Team Providers Name Role Phone Alvaro Xavierrakesh Yeh Primary Care Physician Encounter VC Date(s): 03/09/15 - 03/09/15 [facility] [place] [address] Discharge Diagnosis: Hyperlipidemia Discharge Diagnosis: Rash Discharge [...] Site colonoscopy 2012 Colonoscopies1 2000 Appendectomy Tonsillectomy 68265 flex sig, diverticulosis Social History Social History [...] 05/22/2002 Document Revised: 11/18/2012 Document Reviewed: 06/10/2014 [facility] [place] [facility] Patient Information 2014 [employer] [facility]. No follow up information was provided. Extracted from: Title: Office Visit Note Author: Desiree Farley MD Date: 03/10/15 Assessment/Plan Hyperlipidemia Patient does not wish meds Rash This is from abdomen rubbing on upper thigh.
--- OUTSIDE RECORDS SUMMARY | 2018-02-07 19:00 | External Medical Summary | Referral Summary ---
:1940 Author Organization [facility] Address [address] [place] [address] [place]te[place] [address] Care Team Providers Name Role Phone Hannah Xavier Primary Care Physician Encounter VC Date(s): 04/04/16 - 04/04/16 [facility] [address] [place] [address] [place] [address]- Discharge Disposition: 01-Home or Self Care Attending [...] Site colonoscopy 2012 Colonoscopies1 2000 Appendectomy Tonsillectomy 32095 flex sig, diverticulosis Social History Social History Type Response Smoking Status Never smoker Assessment and Plan No data available for this section
--- OUTSIDE RECORDS SUMMARY | 2018-02-07 19:00 | External Medical Summary | Referral Summary ---
:1940 Author Organization [facility] Address [address] [place] [address] [place]te[place] [address] Care Team Providers Name Role Phone Hannah Xavier Primary Care Physician Encounter VC Date(s): 05/01/17 - 05/01/17 [facility], [address] [place] [address] [place] Discharge Disposition: [...] Site colonoscopy 05/06/12 Colonoscopies1 2000 Appendectomy Tonsillectomy 11169 flex sig, diverticulosis Social History Social History Type Response Smoking Status Never smoker
--- OUTSIDE RECORDS SUMMARY | 2018-02-07 19:00 | External Medical Summary | Referral Summary ---
:1940 Author Organization [facility] Address [address] [place] [address] [place] Orte[place] [address] Care Team Providers Name Role Phone Alvaro Xavierrakesh Yeh Primary Care Physician Encounter VC Date(s): 03/09/15 - 03/09/15 [facility] [place] [address] Discharge Diagnosis: Hyperlipidemia Discharge Diagnosis: Rash Discharge [...] Site colonoscopy 2012 Colonoscopies1 2000 Appendectomy Tonsillectomy 89477 flex sig, diverticulosis Social History Social History [...] 05/22/2002 Document Revised: 11/18/2012 Document Reviewed: 06/10/2014 [facility] Patient Information 2014 [employer] [facility]. No follow up information was provided. Extracted from: Title: Office Visit Note Author: Desiree Farley MD Date: 03/10/15 Assessment/Plan Hyperlipidemia Patient does not wish meds Rash This is from abdomen rubbing on upper thigh.
--- OUTSIDE RECORDS SUMMARY | 2018-02-07 19:01 | External Medical Summary | Continuity of Care Document ---
:1940 Author Organization [facility] Allergies Active Description Code Type Severity Reaction Onset Reported/ Identified Relationship Clinical to Patient Status Yes sulfanilamid NKMA N/A Rash 01/07/2014 e topical Medications Medication Packaging Start Date Stop Date Route Dosage Sig 06/27/2017 IntraMuscular 1,000 mcg cyanocobalamin( 7 1,000 cyanocobalamin) mcg, IntraMus cular, Once Problems Date Dx Coded Attending Type Code Diagnosis Diagnosed By 05/02/2016 Hannah Xavier Final E53.8 Deficiency of other specified B group vitamins 05/30/2016 Hannah Xavier Final E53.8 Deficiency of other specified B group vitamins 06/27/2016 Hannah Xavier Final E53.8 Deficiency of other specified B group vitamins Procedures Code Description [place] [address] Therapeutic, 01/11/2016 prophylactic, or diagnostic injection (specify substance or drug); subcutaneous or intramuscular 47988 Therapeutic, 02/08/2016 prophylactic, or diagnostic injection (specify substance or drug); subcutaneous or intramuscular 51579 Therapeutic, 03/07/2016 prophylactic, or diagnostic injection (specify substance or drug); subcutaneous or intramuscular 63957 Therapeutic, 04/04/2016 prophylactic, or diagnostic injection (specify substance or drug); subcutaneous or intramuscular 54283 Therapeutic, 05/02/2016 prophylactic, or diagnostic injection (specify substance or drug); subcutaneous or intramuscular 81313 Therapeutic, 05/30/2016 prophylactic, or diagnostic injection (specify substance or drug); subcutaneous or intramuscular 20268 Therapeutic, 06/27/2016 prophylactic, or diagnostic injection (specify substance or drug); subcutaneous or intramuscular 33412 Therapeutic, 07/25/2016 prophylactic, or diagnostic injection (specify substance or drug); subcutaneous or intramuscular 07944 Therapeutic, 08/22/2016 prophylactic, or diagnostic injection (specify substance or drug); subcutaneous or intramuscular 15956 Therapeutic, 09/19/2016 prophylactic, or diagnostic injection (specify substance or drug); subcutaneous or intramuscular 67701 Therapeutic, 10/17/2016 prophylactic, or diagnostic injection (specify substance or drug); subcutaneous or intramuscular 67765 Therapeutic, 11/14/2016 prophylactic, or diagnostic injection (specify substance or drug); subcutaneous or intramuscular 72464 Therapeutic, 12/12/2016 prophylactic, or diagnostic injection (specify substance or drug); subcutaneous or intramuscular 37531 Therapeutic, 01/09/2017 prophylactic, or diagnostic injection (specify substance or drug); subcutaneous or intramuscular 17860 Therapeutic, 02/06/2017 prophylactic, or diagnostic injection (specify substance or drug); subcutaneous or intramuscular 35024 Therapeutic, 03/06/2017 prophylactic, or diagnostic injection (specify substance or drug); subcutaneous or intramuscular 36592 Office or 03/20/2017 other outpatient visit for the evaluation and management of an established patient, which requires at least 2 of these 3 velazquez components: A detailed history; A detailed examination; Medical d 38794 Therapeutic, 04/03/2017 prophylactic, or diagnostic injection (specify substance or drug); subcutaneous or intramuscular 82686 Therapeutic, 05/01/2017 prophylactic, or diagnostic injection (specify substance or drug); subcutaneous or intramuscular 00167 Therapeutic, 05/29/2017 prophylactic, or diagnostic injection (specify substance or drug); subcutaneous or intramuscular 29342 Therapeutic, 06/27/2017 prophylactic, or diagnostic injection (specify substance or drug); subcutaneous or intramuscular Results Test Result Range CBC With Platelet and Differential - 03/20/17 08:24 Absolute Basophils 0.03 10*3/uL 0.00-0.20 Absolute Eosinophils 0.23 10*3/uL 0.00-0.50 Absolute Lymphocytes 1.80 10*3/uL 0.80-3.30 Absolute Monocytes 0.37 10*3/uL 0.30-1.00 Absolute Neutrophils 1.72 10*3/uL 1.90-7.00 Basophils 1 % 0-2 Eosinophils 6 % 0-4 HCT 44.0 % 37.0-47.0 HGB 14.4 g/dL 12.0-16.0 Immature Granulocytes 0.0 % 0.0-1.0 Lymphocytes 43 % 20-46 MCH 30.4 pg 27.0-32.0 MCHC 32.7 g/dL 32.0-36.0 MCV 92.8 fL 82.0-99.0 Monocytes 9 % 4-11 MPV 11.1 fL 8.8-14.8 Neutrophils 42 % 51-75 Platelet Count 221 K/uL 150-400 RBC 4.74 10*6/uL 4.00-5.20 RDW 14.0 % 11.5-14.5 WBC 4.2 K/uL 4.8-10.8 eGFR - 03/20/17 08:24 eGFR >60 mL/min >60 Lipid Panel - 03/20/17 08:24 Cardiac Risk 5.1 0.0-5.0 Cholesterol 252 mg/dL 0-199 HDL Cholesterol 49 mg/dL 40-84 LDL Cholesterol 176 mg/dL 0-130 Triglycerides 134 mg/dL 0-149 VLDL Cholesterol 27 mg/dL 0-28 Comprehensive Metabolic Panel (CMP) - 03/20/17 08:24 Albumin 4.4 g/dL 3.4-4.8 Alkaline Phosphatase 91 U/L 40-150 ALT (SGPT) 17 U/L 0-55 Anion Gap 10 mEq/L 3-20 AST (SGOT) 17 U/L 5-34 Bilirubin Total 0.6 mg/dL 0.2-1.2 BUN 14 mg/dL 10-20 Calcium 9.9 mg/dL 8.4-10.2 Chloride 104 mEq/L 99-111 CO2 26 mEq/L 22-31 Creatinine 0.84 mg/dL 0.57-1.11 Globulin 2.8 g/dL 1.8-4.0 Glucose 98 mg/dL 70-99 Potassium 4.4 mEq/L 3.5-5.2 Protein 7.2 g/dL 6.0-7.6 Sodium 140 mEq/L 135-144 Vitamin B12 - 03/20/17 08:24 Vitamin B12 956 pg/mL 213-816 Encounters ACCT No. Visit Discharge Status Pt. Type Provider Facility Loc./Unit Complaint Date/Time [id number] 11/06/2013 11/06/2013 [facility] 10:49:00 23:59:59 nt [id number] 10/30/2013 10/30/2013 [facility] 09:48:00 23:59:59 nt [id number] 06/27/2017 06/27/2017 DIS Outpatie Duc, [facility] B12 INJ 1787 12:39:00 23:59:00 nt [facility] [id number] 05/29/2017 05/29/2017 DIS Outpatie Duc, [facility] B12 inj 3988 09:33:00 23:59:00 nt [facility] N [facility] [id number] 05/01/2017 05/01/2017 DIS Outpatie Duc, [facility] B12 5949 09:42:00 23:59:00 nt [facility] [id number] 04/03/2017 04/03/2017 DIS Outpatie Duc, [facility] B12 9535 09:39:00 23:59:00 nt Hannah Rao [facility] [id number] 03/20/2017 03/20/2017 DIS Outpatie Duc, [facility] recheck 2501 07:41:00 23:59:00 nt Hannah Stewart needs to Clinic have labs for B12 [id number] 03/06/2017 03/06/2017 DIS Outpatie Duc, [facility] B12 7247 09:35:00 23:59:00 nt Hannah [facility]eh [facility] [id number] 02/06/2017 02/06/2017 DIS Outpatie Duc, [facility] B12 INJ 2277 09:38:00 23:59:00 nt [facility] [id number] 01/09/2017 01/09/2017 DIS Outpatie Duc, [facility] B12 INJ 8788 09:27:00 23:59:00 nt [facility] [id number] 12/12/2016 12/12/2016 DIS Outpatie Duc, [facility] B 12 Inj 5823 09:33:00 23:59:00 nt [facility] [id number] 11/14/2016 11/14/2016 DIS Outpatie Duc, [facility] B12 Inj 8172 09:45:00 23:59:00 nt [facility] N [facility] [id number] 10/17/2016 10/17/2016 DIS Outpatie Duc, [facility] B12 INJ 1286 09:35:00 23:59:00 nt [facility] N [facility] [id number] 09/19/2016 09/19/2016 DIS Outpatie Duc, [facility] B 12 Inj 1602 09:29:00 23:59:00 nt [facility] [id number] 08/22/2016 08/22/2016 DIS Outpatie Duc, [facility] New FM B12 INJ 4999 09:43:00 23:59:00 nt [facility] [id number] 07/25/2016 07/25/2016 DIS Outpatie Duc, [facility] New FM B12 INJ 7173 09:36:00 23:59:00 nt [facility] [id number] 06/27/2016 06/27/2016 DIS Outpatie Duc, [facility] New FM B12 INJ 9447 09:34:00 23:59:00 nt [facility] [id number] 05/30/2016 05/30/2016 DIS Outpatie Duc, [facility] New FM B12 inj 4990 09:48:00 23:59:00 nt [facility] [id number] 05/02/2016 05/02/2016 DIS Outpatie Duc, [facility] New TCPA B12 inj 1443 09:43:00 23:59:00 nt [facility] [id number] 04/04/2016 04/04/2016 DIS Outpatie Duc, [facility] Vitamin B 12 0399 09:10:00 23:59:00 nt Hannah Yeh [facility] [id number] 03/07/2016 03/07/2016 DIS Outpatie Duc, [facility] Vit B12 8834 09:50:00 23:59:00 nt Hannah Yeh [facility] [id number] 02/08/2016 02/08/2016 DIS Outpatie Duc, [facility] Vit B12 0998 09:34:00 23:59:00 nt Hannah Yeh [facility] [id number] 01/11/2016 01/11/2016 DIS Outpatie Duc, [facility] Vitamin B 12 6894 09:38:00 23:59:00 nt Hannah Yeh [facility] inj Clinic [id number] 12/14/2015 12/14/2015 DIS Outpatie Duc, [facility] vitamin B 12 4427 09:38:00 23:59:00 nt Hannah [facility] [id number] 11/09/2015 11/09/2015 DIS Outpatie Duc, [facility] Vitamin B 12 1327 09:38:00 23:59:00 nt Hannah [facility]eh [facility] [id number] 10/12/2015 10/12/2015 DIS Outpatie Duc, [facility] vitamin B 12 6874 09:37:00 23:59:00 nt Hannah [facility] [id number] 10/08/2015 10/08/2015 DIS Outpatie Duc, [facility] FM cholesterol 1239 09:30:00 23:59:00 nt Hannah Yeh Pat check 6 Clinic month [id number] 09/14/2015 09/14/2015 CLS Outpatie Duc, [facility] Vitamin B 12 1776 09:44:00 23:59:59 nt Hannah [facility] [id number] 08/10/2015 08/10/2015 DIS Outpatie Duc, [facility] Vitamin B 12 4932 09:37:00 23:59:00 nt Hannah [facility]eh [facility] [id number] 07/13/2015 07/13/2015 DIS Outpatie Duc, [facility] Vitamin B 12 5482 09:35:00 23:59:00 nt Hannah [facility] [id number] 06/15/2015 06/15/2015 CLS Outpatie Duc, [facility] Vitamin B 12 7148 09:42:00 23:59:59 nt Hannah [facility] [id number] 05/18/2015 05/18/2015 DIS Outpatie Duc, [facility] FM B12 inj 9491 09:57:00 23:59:00 nt Hannah [facility] [id number] 04/20/2015 04/20/[address], [facility] Vitamin B 12 6556 09:40:00 23:59:00 nt Desiree Deepak [facility] [id number] 03/23/2015 03/23/[address], [facility] b12 shot 3817 09:42:00 23:59:00 nt Desiree F [facility] [id number] 03/09/2015 03/09/[address], [facility] FM 3 month 6513 14:15:00 23:59:00 nt Desiree Deepak [facility] cholesterol [facility] check [id number] 10/06/2014 10/06/[address], [facility] B12 shot 0667 09:35:00 23:59:00 nt Desiree Deepak [facility] [id number] 09/08/2014 09/08/[address], [facility] B12 shot 9162 09:31:00 23:59:00 nt Desiree F [facility] [id number] 08/11/2014 08/11/[address], [facility] B12 6916 09:39:00 23:59:00 nt Desiree Deepak [facility] [id number] 06/28/2017 Document [id number] 05:18:51 Registra tion [id number] 02/23/2015 Document 4901 09:37:00 Registra tion [id number] 01/26/2015 Document 5678 09:48:00 Registra tion [id number] 12/29/2014 Document 5621 09:58:00 Registra tion [id number] 12/01/2014 Document 3074 13:07:00 Registra tion [id number] 11/03/2014 Document 7756 09:43:00 Registra tion
[2018-02-07] MEDS ORDERED: ASPIRIN 325 MG TABLET PO ONE (20:42)
--- NOTE | 2018-02-07 21:11 | History & Physical Report ---
History of Present Illness Date: 02/08/18 Chief complaint: dizziness, left facial parasthesias HPI: Haritha is a 77 y/o female w/ h/o B12 deficiency but no other reported significant medical issues who presents to ER at [facility] w/ relatively sudden onset of dizziness followed by left facial parasthesia. Denies focal weakness and gait is maintained and patient has no s/s of confusion or other neuro issues. Patient denies cp, soa, CRAMER, f/c/s, n/v/d, dysphagia, dyphonia, word finding difficulty and change in bowel bladder function. In ER patient noted to have initial BP of 211/97, and w/o medication came down to 176/91. Patient states she does not have a h/o HTN and blood pressure usually in the 120s systolic. With the BP lower, the dizziness has resolved and the parasthesias are minimal, but there was some concern on exam that patient may have a slight left facial droop compared to the left. tPA was not given as patient's symptoms seemed to resolved relatively quickly, especially w / lowering of the BP. Patient did receive 325mg ASA x one and her CT head was negative. Patient will be admitted to the Hospitalist service for further evaluation and management. I visited with the patient's daughter and patient and patient is doing better, resting comfortably. The daughter did not feel as if the patient had a left facial droop and did not note any asymmetry. Patient states she feels tired and her eyes are dry, but had no other complaints. Review of Systems All systems PM: 10-point ROS was reviewed, no additional remarkable complaints except Past Medical History Medical History Updates: B12 deficiency and receives monthly injections. No other significant history reported Surgical History: Appendectomy. Colonoscopies Family History: No Significant Family History (reported) - Social History Smoking status: Never smoker Medications Home Medications Medication Instructions Recorded Confirmed Type Cyanocobalamin (B-12) [Vit. B-12] 1,000 mcg IM Q30D 02/07/18 02/07/18 History Ibuprofen [Advil] 200 mg PO Q4H PRN 02/07/18 02/07/18 History Multivitamin [One Daily 1 tab PO DAILY 02/07/18 02/07/18 History Multivitamin] Allergies Allergy/AdvReac Type Severity Reaction Status Date / Time Sulfa (Sulfonamide Allergy Unknown Verified 02/07/18 19:01 Antibiotics) Exam Vital Signs: Temperature 98.3 F 02/07/18 18:30 Pulse Rate 72 02/07/18 21:02 Respiratory Rate 12 02/07/18 21:02 Blood Pressure 180/81 H 02/07/18 21:02 Pulse Oximetry 94 02/07/18 21:02 Height/Weight/BMI: Height 1.52 m Weight 80 kg - Constitutional Present: no acute distress, well nourished, well developed, cooperative - Routine HEENT Exam Head: Present: normocephalic, atraumatic Eye: Present: EOMI, PERRL ENT: Present: mucous membranes moist, nares patent - Routine Neck Exam Present: supple, full ROM. Absent: JVD - Routine Respiratory Exam Present: CTA bilaterally. Absent: accessory muscle use, dyspnea, rales, respiratory distress, rhonchi, wheezes - Routine Cardiovascular Exam Present: RRR, S1, S2 - Routine Abdominal Exam Present: soft, normoactive bowel sounds, non distended, non tender - Routine Extremities Exam Absent: cyanosis, clubbing, edema - Routine Neurological Exam Present: alert, oriented X3, CN II-XII intact. Absent: sensory deficit, motor deficit - Routine Psychiatric Exam Present: normal affect, normal thought process, cooperative, good insight, good judgment Results - Labs CBC & Chem 7: 02/08/18 04:47 02/08/18 04:47 Assessment and Plan Assessment and Plan: Assessment: 1) Acute onset of dizziness and left facial parasthesias w/ ? slight left facial droop - symptoms purportedly for most part resolved as BP decreased - no tPA administered. Possible TIA vs CVA vs. other etiology 2) Acute Elevated BP without the diagnosis of HTN 3) B12 deficiency on monthly B12 injections 4) Dry eyes - uses ointment at night and eye drops during the day Plan: Admit to the Hospitalist service Consult Dr. Low ASA 325mg po once daily (was not taking ASA prior to this event) Carotid duplex US of bilateral carotid arteries Echocardiogram MRI brain w/o contrast Labs in the AM SCDs Regular diet after cleared by nursing (bedside swallow) or ST ST/OT/PT consults Telemetry Norvasc 5mg po q 12 hours prn for SBP > 180 mm Hg - I d/w patient and she is generally not excited about taking meds but is okay with doing the Norvasc if needed Neuro checks Fall precautions I discussed the plan of care w/ the patient and the patient's daughter and they verbalized understanding and agreement. DVT Prophylaxis: SCD's Resuscitation Status: Full Code - Physician Narrative Physician: Alesia Adkins MD Narrative: Date: 02/07/18 Time: 1630 Please see note dictated 02/08/18. Hospital Course Summary Disclaimer: The visit summary below is not to be considered part of the above Progress Note.
[2018-02-07] MEDS ORDERED: ACETAMINOPHEN 325 MG TABLET PO PRN (21:35)
[2018-02-07] MEDS ORDERED: ONDANSETRON 4 MG/2 ML INJECTION IVP PRN (21:35)
[2018-02-07 21:36] VITALS: BMI 29.2
[2018-02-07 21:38] VITALS: RESP 18
[2018-02-07] MEDS ORDERED: AMLODIPINE 5 MG TABLET PO PRN (22:47)
[2018-02-07] MEDS: SODIUM CHLORIDE 5% EYE DROP 15ml EACH EYE PRN (23:34)
--- NOTE | 2018-02-08 08:13 | CT Scan Report ---
Indication: dizziness with left facial paresthesia PROCEDURE: CT head/brain wo con: Encounter: Initial Comparison: None Technique: Axial CT images through the head were performed without contrast. Iterative Reconstruction dose reducing technique was utilized. FINDINGS: Old right basal ganglia lacunar infarct or prominent perivascular space. Mild atrophy. The ventricles are of normal size, shape, and contour for the patient's age. There are scattered areas of low attenuation in the white matter which most likely represent changes from chronic microvascular ischemia. The brainstem, cerebellum, and cerebral hemispheres otherwise have a normal morphology and CT attenuation. There is no evidence of midline displacement. No hemorrhage, signs of acute territorial stroke, mass effect, mass lesions, or edema is evident. The visualized portions of the skull base, midface, and calvarium demonstrate no abnormality. The paranasal sinuses are well aerated and free of significant disease. The tympanic and mastoid cavities appear normal. IMPRESSION: No acute intracranial abnormality or hemorrhage. There is a preliminary report by [employer]. .
[2018-02-08] MEDS: SODIUM CHLORIDE 5% EYE DROP 15ml EACH EYE PRN (08:20)
[2018-02-08] MEDS ORDERED: MULTI-VITAMIN + MINERAL TABLET PO SCH (09:00)
[2018-02-08] MEDS ORDERED: NON-FORMULARY MEDICATION 1 EACH EACH (Multivitamin [One Daily Multivitamin] 1 TAB) PO SCH (09:00)
--- NOTE | 2018-02-08 09:12 | Ultrasound Report ---
Indication: TIA Symptoms PROCEDURE: US carotid doppler BI: TECHNIQUE: Grayscale, color and duplex Doppler imaging was performed of the carotid systems bilaterally. Velocities in cm/sec - validated velocity measurements with angiographic measurements, velocity criteria are extrapolated from diameter data as defined by the Society of Radiologists in Ultrasound Consensus Conference Radiology 2003; 229;340-346. RIGHT: PSV ICA 72 EDV ICA 26 PSV CCA 71 EDV CCA 18 SVR 1.0 PSV ECA 93 ICA Diameter reduction 10%-30% (1.0-1.2 PSV<110)% LEFT: PSV ICA 53 EDV ICA 19 PSV CCA 81 EDV CCA 23 SVR 0.7 PSV ECA 104 ICA Diameter reduction 10%-30% (1.0-1.2 PSV<110)% The right vertebral artery is patent with cephalic flow. The left vertebral artery is patent with cephalic flow. Mild calcified plaque in the carotid bulbs without focal velocity elevation. IMPRESSION: No hemodynamically significant carotid stenosis. .
[2018-02-08 10:47] VITALS: TEMP 95.5
--- NOTE | 2018-02-08 12:22 | Consultation ---
DATE OF CONSULTATION 02/08/[address] Adkins The patient's chief complaint is left facial weakness and numbness. HISTORY OF PRESENT ILLNESS The patient is a 77-year-old female with no significant past medical history. The patient presented with sudden-onset dizziness followed by left facial paresthesia and weakness. The patient's symptoms improved by the time she went to the emergency room. On admission she had a blood pressure of 211/97. This had later improved to 176/91 and it has been in the normal range since then. The patient has no history of hypertension. The patient denies having similar symptoms in the past. She denies having any weakness or numbness in the extremities. The patient has not been taking any antiplatelet therapy in the past. She has taken aspirin occasionally for headache. The patient continues to have some mild left facial numbness and minimal weakness. Her dizziness has improved significantly since admission. The patient had a CT of the head in the emergency room that showed no acute abnormalities. Her lab work was unremarkable overall with mildly elevated BUN level. The patient takes a B12 IM injection on a monthly basis for B12 deficiency. PHYSICAL EXAMINATION The patient was awake, alert, oriented x 3. Pupils were round, reactive and equal. Extraocular muscles were intact. Visual field was full. Speech was fluent. Facial motor and sensory showed mild deficit on the left compared to the right. Motor examination in the extremities was 5-/5 in all extremities. Sensory examination was symmetrical for light touch and pinprick. Deep tendon reflexes were 2/4. Plantar reflexes were in flexion bilaterally. Coordination for [id number] was normal. ASSESSMENT New-onset left facial numbness and weakness associated with acute dizziness. This can be a related to a small vessel ischemic stroke. PLAN 1. Obtain an MRI of the brain without contrast to rule out acute stroke. 2. Follow up on the result of the carotid Doppler to rule out large vessel disease. 3. Continue aspirin 81-325 mg p.o. q.d. for stroke prevention. 4. Monitor blood pressure and check for orthostatic changes if needed. 5. Provide good fluid intake. MTDD
--- NOTE | 2018-02-08 13:01 | Magnetic Resonance Report ---
Indication: TIA symptoms PROCEDURE: MR head/brain wo con: Encounter: Initial Comparisons: Head CT from yesterday and brain MRI dated February 27, 2013 Technique: Multiplanar, multisequence, MR imaging of the head without contrast was acquired. FINDINGS: Chronic arachnoid cyst in the left posterior fossa. Prominent perivascular space noted on the right. The ventricles are of normal size, shape, and contour for the patient's age. There are small nonspecific punctate areas of T2-weighted and T2 FLAIR weighted signal abnormality in the deep frontoparietal white matter that most likely represent small vessel ischemic disease. This is stable from the prior exam. The brain stem, cerebellum, and cerebral hemispheres otherwise have a normal morphologic appearance as well as MR signal intensity on all pulse sequences. There are no areas of restricted diffusion on diffusion weighted imaging to suggest an acute infarct. There is no evidence of an intracranial mass lesion, intracranial hemorrhage, or hydrocephalus. The visualized portions of the orbits, calvarium, paranasal sinuses, and skull base demonstrate no significant abnormality. IMPRESSION: No acute intracranial abnormality. Stable exam. .
[2018-02-08 15:15] VITALS: BP 157/87; PULSE 68; O2SAT 94
[2018-02-08] MEDS ORDERED: ASPIRIN *EC* 81 MG TABLET PO SCH (17:15)
--- NOTE | 2018-02-08 17:27 | History & Physical Report ---
History of Present Illness Date: 02/08/18 Chief complaint: facial numbness, dizziness HPI: Haritha is a 77 y/o female w/ h/o B12 deficiency but no other reported significant medical issues who presents to ER at [facility] [place] w/ relatively sudden onset of dizziness followed by left facial parasthesia. She described dizziness as a sensation that she would fall when she stood in her kitchen; she caught herself and did not fall and specifically denies vertigo and reports that it was "not like she was dizzy". She can't describe what the falling sensation was only that it came on suddenly and was then gone. She reports that she had low energy all day prior to that. After the episode where she felt she would fall she was able to ambulate but noted onset of left facial paresthesias with occasional pain shooting across the left side of the face. She describes tingling and numbness in the left mid and lower face and occasionally extending into the left periorbital area and down as for as the proximal left shoulder. There is no numbness involving the left arm or the left lower extremity. She initially reported that her left eyelid droop but subsequently indicated she has chronic difficulty closing her left eye independently and that it always looks like the left eye is a little more open than the right. Family did not believe there is any new asymmetry in the patient's face. Blood pressure was dramatically elevated in the emergency room with systolic pressure 211/97 with subsequent normalization overnight. A left facial droop was suggested in the emergency room. Patient was treated with aspirin in the emergency room and noncontrast CT head was negative. Symptoms were resolving in the emergency room and thus TPA was not administered. Patient denied any difficulty with her speech and family confirm that speech is normal. Minor tingling has persisted across the left face but is significantly improved from presenting symptoms and no new neurological symptoms have evolved. Patient denies any ear symptoms, change in vision, or focal weakness. The only other recent change she describes was a dental crown in the left jaw several weeks ago. Review of Systems All systems PM: 10-point ROS was reviewed, no additional remarkable complaints except - EENMT EENMT Comments: Recent dental crown - Musculoskeletal Musculoskeletal Comments: Chronic stiffness in her hips, legs feel like they don't work when she wakens in the morning and she has a tingling/burning sensation which shoots down her legs bilaterally intermittently and has done so for approximately 4 years. - Neurological Neurological: Present: radicular pain Past Medical History Medical History: Medical History (Last Updated 02/08/18 @ 10:46 by Alesia Adkins MD) B12 deficiency Medical History Updates: B12 deficiency and receives monthly injections. No other significant history reported Surgical History: Appendectomy. Colonoscopies. Tonsillectomy, bilateral tubal ligation, closed reduction leg fracture Family History Updates: Father-CAD with bypass surgery, mother TIAs, brother- diabetes mellitus, prostate cancer, sister uterine cancer recently diagnosed Family History: As Above - Social History Smoking status: Never smoker Substance use type: does not use Alcohol intake frequency: does not drink Social history: PCP-Dr. Xavier Full code, living well; no alternate decision maker assigned Medications Home Medications Medication Instructions Recorded Confirmed Type Cyanocobalamin (B-12) [Vit. B-12] 1,000 mcg IM Q30D 02/07/18 02/07/18 History Ibuprofen [Advil] 200 mg PO Q4H PRN 02/07/18 02/07/18 History Multivitamin [One Daily 1 tab PO DAILY 02/07/18 02/07/18 History Multivitamin] Aspirin [Adult Low Dose Aspirin EC] 81 mg PO DAILY #100 tablet. 02/08/18 Rx Allergies Allergy/AdvReac Type Severity Reaction Status Date / Time Sulfa (Sulfonamide Allergy Unknown Verified 02/07/18 19:01 Antibiotics) Exam Vital Signs: Temperature 95.5 F L 02/08/18 08:00 Pulse Rate 68 02/08/18 15:10 Respiratory Rate 18 02/08/18 15:10 Blood Pressure 157/87 H 02/08/18 15:10 Pulse Oximetry 94 -RA 02/08/18 15:10 EXAM: General-NAD, alert, fluent speech HEENT-PERRL, EOMI without nystagmus, very minor right ptosis relative to left, conjugate gaze, conjunctiva clear, sclera anicteric, facial structures symmetric , oropharynx clear, neck supple and without adenopathy Lungs-respirations nonlabored, good airflow, breath sounds clear Cardiac-regular rhythm, S1 and S2 Abd-soft, nontender, without palpable mass, bowel sounds present Ext-extremities without edema Skin-without wounds/rashes Neuro-cranial nerves 3-12 intact x minor asymmetry of eye closure and very minor subjective tingling when left face starting around the eyebrow to the jaw line is touched (forehead wrinkles symmetrically), no facial sensory loss; motor tone and power are normal symmetrically, sensation intact to light touch and cold 4 extremities Psych-calm, cooperative Height/Weight/BMI: Height 1.65 m Weight 78.9 kg Body Mass Index 29.2 Results - Labs CBC & Chem 7: 02/08/18 04:47 02/08/18 04:47 Labs: Calcium 10.3 on presentation-9.7 this a.m. TSH 4.48 Troponin < 0.012 - Imaging and Cardiology CT scan - head Status: image reviewed by me (mild atrophy, possible old right basal ganglia lacunar infarct versus prominent perivascular space and low attenuation white matter changes consistent with chronic microvascular ischemic changes. No acute pathology described nor evidence of sinus disease.) MRI - head Status: image reviewed by me (chronic arachnoid cyst in the left posterior fossa , prominent perivascular space noted on the right; no acute intracranial abnormalities to suggest acute stroke.) carotid Dopplers Additional comments: No hemodynamically significant carotid stenosis Assessment and Plan (1) Facial paresthesia Current visit: Yes Status: Acute Assessment and Plan: Assessment: 1) Acute onset of dizziness and left facial parasthesias 2) Acute Elevated BP without the diagnosis of HTN 3) B12 deficiency on monthly B12 injections 4) Dry eyes - uses ointment at night and eye drops during the day Plan: Admit to the Hospitalist service-outpatient basis; patient evaluated by Dr. Low earlier today-daily aspirin recommended at 81 mg. ASA 325mg po once daily (was not taking ASA prior to this event) Carotid duplex US of bilateral carotid arteries with out hemodynamically significant stenosis and bilateral internal carotid with 10-30% stenosis Echocardiogram-report pending; telemetry consistently sinus thus far. MRI brain w/o contrast negative per my review and no evidence of stroke per radiology. PT/OT have cleared patient to resume regular activities. Blood pressure stabilized overnight after initial hypertension, 125/69 this morning with last reading 157/87. No treatment initiated. Continue neuro check. Fall precautions placed initially but discontinued after PT evaluation. Anticipate discharge if echocardiogram unremarkable with outpatient follow-up for reassessment in the near future. Discussed with multiple family members, discussed with Dr. Low. DVT Prophylaxis: SCD's Resuscitation Status: Full Code - Physician Narrative Narrative: Date: 02/08/18 Time: 1718 Hospital Course Summary Disclaimer: The visit summary below is not to be considered part of the above Progress Note.
--- NOTE | 2018-02-08 18:01 | Discharge Summary ---
Discharge Summary- Blank Discharge Summary: Mrs. Glass was admitted after an episode of feeling as though she would fall followed by left facial paresthesias. She had no further ambulatory dysfunction and paresthesias improved but did not fully resolve. Extensive evaluation including noncontrast CT head, MRI head, carotid Dopplers, and echocardiogram was obtained and unremarkable. Please refer to the H&P for results of radiology studies. Echocardiogram report is pending at discharge but demonstrated normal ejection fraction without evidence of thrombus or mass and only minor valvular abnormalities per verbal report. Telemetry was consistently sinus rhythm during the time she was hospitalized. She was seen in consultation by Dr. Low who recommended continuation of low-dose aspirin. He additionally recommended that orthostatic pressures be obtained and they were unremarkable. There was no overt facial change to suggest Brandt's palsy but follow-up will be needed for reassessment. Blood pressure was elevated in the emergency room on presentation but normalized overnight and was only minimally elevated at discharge. Reassessment next week was recommended. Discharge diagnoses: Left facial paresthesias Dizziness/unstable standing-transient Elevated blood pressure without diagnosis hypertension-transient B-12 deficiency Dry eyes Medications: Aspirin 81 mg daily in addition to medications on admission. Patient follow-up with Dr. Xavier in one week for reassessment.
[2018-02-08] MEDS ORDERED: SODIUM CHLORIDE 5% EACH EYE SCH (21:00)
[2018-02-08] MEDS ORDERED: EYE EACH EYE SCH (21:00)
--- NOTE | 2018-02-09 11:43 | Echocardiogram ---
DATE OF PROCEDURE February 08, 2018 This is a two-dimensional echo with spectral Doppler, color-flow and M-mode. It was obtained in a patient with TIA. Left atrial dimension is normal. Left ventricular end-diastolic dimension is normal. Left ventricular wall thickness is normal. LV systolic function is normal with ejection fraction of 73%. Right atrium is normal. Right ventricle is normal. Aortic root dimension is normal. Mitral valve is morphologically normal with mild mitral regurgitation. Aortic valve is a trileaflet structure with no stenosis or insufficiency. Tricuspid valve shows mild tricuspid regurgitation with normal estimated pulmonary artery systolic pressure of 28. Pulmonary valve shows trace of pulmonary insufficiency. There is no pericardial effusion. Grossly there is no intracardiac thrombus or mass. IMPRESSION 1. Normal LV systolic function with ejection fraction of 73%. 2. Grossly no intracardiac thrombus or mass. 3. Mild mitral regurgitation. 4. Mild tricuspid regurgitation with normal estimated pulmonary artery systolic pressure of 28. 5. Trace of pulmonary insufficiency. MTDD
== END 2018-02-08 18:00 | disposition home or self-care (01) ==
LOC: EDHOLD 18:29 → ED 18:29 → SUATTDRO 20:44 → MED 21:25
PROVIDERS: ADMIT Internal Medicine; ATTEND Internal Medicine